=== PATIENT | male | born 1950 | race Caucasian/White ===

== ENCOUNTER → 2018-05-10 06:50 | Outpatient (CLI) | payer MEDICARE, SELFPAY ==
[2018-05-10 08:57] LABS: Hemoglobin A1C% w Est Avg Glu 5.9 % (4.0-6.0)
[2018-05-10 09:49] LABS: Alanine Aminotransferase 30 IU/L (21-72); Albumin 4.6 g/dL (3.5-5.0); Albumin Globulin Ratio 1.6 (1.0-2.8); Alkaline Phosphatase 94 U/L (38-126); Aspartate Aminotransferase 40 IU/L (17-59); BUN Creatinine Ratio 13.3 (6-22); Blood Urea Nitrogen 12 mg/dL (9-20); Calcium 9.7 mg/dL (8.4-10.2); Carbon Dioxide 28 mmol/L (22-32); Chloride 102 mmol/L (98-107); Estimated Glomerular Filt Rate > 60.0 mL/min (>60); Globulin 2.8 g/dL (1.7-4.1); Glucose 91 mg/dL (80-110); HEMOLYSIS < 15 (0-50); Potassium 4.2 mmol/L (3.4-5.1); Sodium 142 mmol/L (137-145); Total Protein 7.4 g/dL (6.3-8.2)
[2018-05-10 10:05] LABS: Free T4, Direct Thyroxine 1.46 ng/dL (0.78-2.19)
[2018-05-10 10:19] LABS: Thyroid Stimulating Hormone 4.98 uIU/mL (0.47-4.68)
[2018-05-10 10:24] LABS: Prostate Specific Antigen Scrn 0.193 ng/mL (0.1-4.0)
== END ==
PROVIDERS: PCP Internal Medicine; Visit Provider Internal Medicine
DX: E11.9 Type 2 diabetes mellitus without complications (principal); E03.9 Hypothyroidism, unspecified; Z12.5 Encounter for screening for malignant neoplasm of prostate
CPT/HCPCS: 36415; 80053; 83036; 84439; 84443; G0103

== ENCOUNTER → 2018-11-11 06:50 | Outpatient (CLI) | payer MEDICARE, SELFPAY ==
[2018-11-11 08:46] LABS: Hemoglobin A1C% w Est Avg Glu 5.6 % (4.0-6.0)
[2018-11-11 08:54] LABS: Alanine Aminotransferase 20 IU/L (21-72); Albumin 4.6 g/dL (3.5-5.0); Albumin Globulin Ratio 1.6 (1.0-2.8); Alkaline Phosphatase 86 U/L (38-126); Aspartate Aminotransferase 32 IU/L (17-59); BUN Creatinine Ratio 8.8 (6-22); Bilirubin Total 0.5 mg/dL (0.2-1.3); Blood Urea Nitrogen 7 mg/dL (9-20); Calcium 9.4 mg/dL (8.4-10.2); Carbon Dioxide 28 mmol/L (22-32); Chloride 98 mmol/L (98-107); Estimated Glomerular Filt Rate > 60.0 mL/min (>60); Globulin 2.9 g/dL (1.7-4.1); Glucose 96 mg/dL (80-110); Potassium 4.9 mmol/L (3.4-5.1); Sodium 137 mmol/L (137-145); Total Protein 7.5 g/dL (6.3-8.2)
[2018-11-11 08:59] LABS: HEMOLYSIS 52 (0-50)
== END ==
PROVIDERS: PCP Internal Medicine; Visit Provider Internal Medicine
DX: E03.9 Hypothyroidism, unspecified (principal); E11.9 Type 2 diabetes mellitus without complications; E78.2 Mixed hyperlipidemia
CPT/HCPCS: 36415; 80053; 83036

== ENCOUNTER → 2019-05-16 06:50 | Outpatient (CLI) | payer MEDICARE, SELFPAY ==
[2019-05-16 08:18] LABS: Alanine Aminotransferase 14 IU/L (<50); Albumin 4.8 g/dL (3.5-5.0); Albumin Globulin Ratio 1.7 (1.0-2.8); Alkaline Phosphatase 100 U/L (38-126); Aspartate Aminotransferase 39 IU/L (17-59); BUN Creatinine Ratio 12.5 (6-22); Blood Urea Nitrogen 10 mg/dL (9-20); Calcium 9.9 mg/dL (8.4-10.2); Carbon Dioxide 27 mmol/L (22-32); Chloride 99 mmol/L (98-107); Cholesterol 173 mg/dL (140-199); Estimated Glomerular Filt Rate > 60.0 mL/min (>60); Globulin 2.8 g/dL (1.7-4.1); Glucose 78 mg/dL (80-110); HDL Cholesterol 106 mg/dL (40-60); HEMOLYSIS < 15 (0-50); LDL Cholesterol Calculated 53 mg/dL (<100); Potassium 4.5 mmol/L (3.4-5.1); Sodium 137 mmol/L (137-145); Total Protein 7.6 g/dL (6.3-8.2); Triglycerides 72 mg/dL (35-150)
[2019-05-16 08:19] LABS: Hemoglobin A1C% w Est Avg Glu 5.2 % (4.0-6.0)
[2019-05-16 08:48] LABS: Prostate Specific Antigen Scrn 0.236 ng/mL (0.1-4.0)
[2019-05-16 08:50] LABS: Thyroid Stimulating Hormone 1.57 uIU/mL (0.47-4.68)
== END ==
PROVIDERS: PCP Internal Medicine; Visit Provider Internal Medicine
DX: Z12.5 Encounter for screening for malignant neoplasm of prostate (principal); E03.9 Hypothyroidism, unspecified; E11.9 Type 2 diabetes mellitus without complications; E78.2 Mixed hyperlipidemia
CPT/HCPCS: 36415; 80053; 80061; 83036; 84439; 84443; G0103